=== PATIENT | male | born 1950 | race Caucasian/White ===

== ENCOUNTER 2019-06-30 11:59 | Inpatient (IN) ==
[2019-06-30] MEDS ORDERED: TORADOL IV ONE (12:23)
[2019-06-30] MEDS ORDERED: NS 1,000 ML IV ONE (12:23)
--- NOTE | 2019-06-30 12:54 | Diag Imaging Result Doc PS360 ---
EXAM: CT ABDOMEN/PELVIS W/O CONTRAST HISTORY: flank pain TECHNIQUE: CT abdomen and pelvis without contrast COMPARISON: 04/11/2019 FINDINGS: No calcified gallstones or adjacent inflammation. No focal hepatic normality identified on this noncontrasted exam. No splenomegaly. No inflammation about the pancreas. Normal adrenal glands. No right renal stone or right-sided hydronephrosis. There is a 5 x 6 x 9 mm stone in the mid left ureter with moderate hydronephrosis and perinephric inflammation. Moderate atherosclerosis. No aortic aneurysm. Normal appendix. No abscess. There are scattered colonic diverticula. No bowel obstruction. There are urinary bladder diverticula. Possible wall thickening with mild inflammation about the largest one posteriorly on the left. There are large prostatic calcifications. Prostate is not enlarged. IMPRESSION: 1.Stone in the mid left ureter with hydronephrosis and perinephric inflammation 2.Urinary bladder diverticula with possible cystitis This exam was performed using automated exposure control, adjustment of mA or kV according to patient size, and/or use of iterative reconstruction technique. Electronically signed by Piotr Sprague 06/30/2019 12:52 PM
[2019-06-30 14:39] LABS: URINE SOURCE CLEAN CATCH
[2019-06-30 14:41] LABS: BILIRUBIN URINE NEGATIVE (NEGATIVE); BLOOD URINE MODERATE (NEGATIVE); COLOR YELLOW; GLUCOSE URINE NEGATIVE (NEGATIVE); KETONE URINE NEGATIVE (NEGATIVE); LEUKOCYTES URINE SMALL (NEGATIVE); NITRITE URINE NEGATIVE (NEGATIVE); PROTEIN URINE 30 mg/dL (NEGATIVE); SP GRAVITY URINE 1.022; TURBIDITY URINE CLEAR (CLEAR); UR EPITHELIAL CELLS <10 /HPF (<10); URINE BACTERIA NEGATIVE /HPF; URINE RBC TNTC /HPF (<10); URINE WBC 20-40 /HPF (<10); UROBILINOGEN URINE NORMAL (NORMAL)
[2019-06-30 17:28] LABS: BASO# 0.03 X1000 (0.0-0.2); BASO% 0.4 % (0.0-0.8); EOS# 0.18 X1000 (0.0-0.7); EOS% 2.2 % (0.0-10.0); HEMATOCRIT 38.2 % (42.0-52.0); HEMOGLOBIN 12.8 g/dL (14.0-18.0); IMM GRAN# 0.04 X1000 (0.0-0.04); IMM GRAN% 0.5 % (0.0-0.5); LYMPH% 13.5 % (20.5-51.1); MCH 30.2 PG (27-31); MCHC 33.5 g/dL (33-37); MCV 90.1 FL (81-99); MONO# 0.78 X1000 (0.11-0.59); MONO% 9.6 % (1.7-9.3); MPV 10.3 FL (7.4-10.4); NEUT# 6.01 X1000 (1.4-6.5); NEUT% 73.8 % (42.2-75.2); PLT 226 X1000 (130-400); RBC 4.24 XMIL (4.7-6.1); RDW 12.1 % (11.5-14.5); WBC 8.14 X1000 (4.8-10.8)
[2019-06-30 17:35] LABS: PROTIME 13.3 Seconds (11.0-16.0)
[2019-06-30 17:53] LABS: ALB/GLOB RATIO 1.7; ALBUMIN 4.2 g/dL (3.5-5.0); CALCIUM 10.3 mg/dL (8.8-10.2); CREATININE 1.4 mg/dL (0.7-1.2); MAGNESIUM 1.8 mg/dL (1.5-2.7); TOTAL BILIRUBIN 0.4 mg/dL (0.20-1.00); TOTAL PROTEIN 6.7 g/dL (6.3-8.3)
[2019-06-30] MEDS ORDERED: TYLENOL PO PRN (18:10)
[2019-06-30] MEDS ORDERED: ZOFRAN IV PRN (18:10)
[2019-06-30] MEDS ORDERED: PROTONIX IV SCH (18:15)
[2019-06-30] MEDS ORDERED: SODIUM CHLORIDE 0.9% INJ SCH (18:15)
--- NOTE | 2019-06-30 18:42 | PROVIDER DOCUMENTATION ---
This chart was entered by Pat Jones Scribe, acting as scribe for Viral Chaudhary MD. HPI-Male Problem - General Chief Complaint: Flank Pain Stated Complaint: KIDNEY STONES Time Seen by Provider: 06/30/19 12:03 Source: patient Allergies/Adverse Reactions: Patient Allergies Allergy/AdvReac Type Severity Reaction Status Date / Time No Known Allergies Allergy Verified 08/15/13 14:26 Home Medications: Home Medication List Medication Instructions Recorded Confirmed Last Taken Type Esomeprazole [Nexium] 40 mg PO DAILY 08/15/13 08/15/13 08/24/13 18:00 History Fenofibrate 160 mg PO QAM 08/15/13 08/15/13 08/24/13 18:00 History Meclizine [Antivert] 12.5 mg PO QAM 08/15/13 08/15/13 08/25/13 07:00 History Nebivolol HCl [Bystolic] 2.5 mg PO QAM 08/15/13 08/15/13 08/24/13 18:00 History Telmisartan [Micardis] 20 mg PO QAM 08/15/13 08/15/13 08/25/13 07:00 History - History of Present Illness-Male Nature of Presenting Problem: 68yom presents to ED cc left flank pain that radiates to LLQ and left groin for last 2 days that is increasing. Pt reports he was seen by PCP yesterday, given Flomax BID, Cipro 500mg BID and Perrin 10mg q6 and advised to come to ED if symptoms worsened. Pt had an abdominal CT 04/11/19 that showed stone in left kidney and bladder diverticulia. Pt has hx of kidney stones. Location of Complaint: reports: left flank Radiation: reports: LLQ, groin (left) Quality of Pain: reports: sharp Severity in ED: reports: moderate Onset/Duration: reports: 2 days ago Timing: reports: still present, getting worse Context/Activities at Onset: reports: light activity Urinary Symptoms: reports: dysuria, hematuria, retention Associated Symptoms: reports: nausea, vomiting Similar Symptoms Previously?: Yes Recently seen or treated by another doctor?: Yes (seen at PCP 06/29/19) Review of Systems - Adult - REVIEW OF SYSTEMS - ADULT Constitutional: reports: see HPI. denies: chills, fever, fatique Eyes: reports: no symptoms reported Ears, Nose, Mouth & Throat: reports: no symptoms reported Cardiovascular: reports: no symptoms reported Respiratory: reports: no symptoms reported Gastrointestinal: reports: see HPI, abdominal pain (LLQ), nausea, vomiting. denies: diarrhea Genitourinary: reports: see HPI, dysuria, flank pain (left), hematuria, urinary retention Musculoskeletal: reports: no symptoms reported Integumentary: reports: no symptoms reported Neurological: reports: no symptoms reported Psychiatric: reports: no symptoms reported Endocrine: reports: no symptoms reported Hematologic/Lymphatic: reports: no symptoms reported Allergic/Immunologic: reports: no symptoms reported All Other Systems: Reviewed and Negative Past History - Adult - PAST MEDICAL HISTORY-ADULT Review of Records: reports: Nursing Assessment Review, Medications Reviewed, Social history reviewed & non-contributory. Major Childhood Illnesses: reports: denies history Cardiovascular: reports: denies history Respiratory: reports: denies history Gastrointestinal: reports: denies history Obstetrical/Gynecological: reports: denies history Genitourinary: reports: denies history Musculoskeletal: reports: denies history Neurological: reports: denies history Endocrine/Immune: reports: denies history Other Conditions: reports: denies history - IMMUNIZATION STATUS Childhood Immunizations: See Nurse Assessment Flu Vaccine: See Nurse Assessment - FAMILY HISTORY Family History: reviewed, not pertinent - SOCIAL HISTORY Smoking: denies Physical Exam-General - PHYSICAL EXAM-ADULT Initial Vital Signs Reviewed: Yes - CONSTITUTIONAL General Appearance: appears well, alert. negative: anxious, combative - EYES Eyes: PERRL/EOMI, pink conjunctivae. negative: photophobia - HEAD, EARS, NOSE, MOUTH & THROAT HENMT: normocephalic/atraumatic, moist mucous membranes. negative: angioedema - RESPIRATORY Respiratory: chest non-tender, lungs clear, normal breath sounds. negative: wheezing - CARDIOVASCULAR Cardiovascular: normal peripheral pulses, regular rate, rhythm, no edema. negative: bradycardia, tachycardia - GASTROINTESTINAL (ABDOMEN) Abdominal Exam: normal bowel sounds, soft, tenderness (LLQ). negative: rebound - MUSCULOSKELETAL Back Exam: no vertebral tenderness, CVA tenderness (left) Extremity: normal inspection, normal capillary refill. negative: deformity - SKIN Integumentary: normal color. negative: diaphoresis, jaundice - PSYCHIATRIC Psych/Mental Status: normal mood/affect, oriented x 3. negative: anxious, disheveled Progress - PLAN OF CARE/RESULTS Progress/Plan/Lab Results: Vital Signs - 8 hr 06/30/19 12:03 Temperature 98.3 F Pulse Rate 99 H Respiratory Rate 20 Blood Pressure 149/85 O2 Sat by Pulse Oximetry 98 Laboratory Results - last 24 hr 06/30/19 06/30/19 06/30/19 13:36 13:36 13:36 WBC 8.14 RBC 4.24 L Hgb 12.8 L Hct 38.2 L MCV 90.1 MCH 30.2 MCHC 33.5 RDW Std Deviation 12.1 Plt Count 226 MPV 10.3 Immature Gran % (Auto) 0.5 Neut % (Auto) 73.8 Lymph % (Auto) 13.5 L [place] % (Auto) 9.6 H Eos % (Auto) 2.2 Baso % (Auto) 0.4 Immature Gran # (Auto) 0.04 Neut # (Auto) 6.01 Lymph # (Auto) 1.10 L [place] # (Auto) 0.78 H Eos # (Auto) 0.18 Baso # (Auto) 0.03 PT 13.3 INR 1.00 Sodium 141 Potassium 4.0 Chloride 102 Carbon Dioxide 24 L Anion Gap 15 BUN 22 Creatinine 1.4 H Estimated GFR/1.73 m2 50 BUN/Creatinine Ratio 16 Glucose 92 Calculated Osmolality 284 Calcium 10.3 H Magnesium 1.8 Total Bilirubin 0.40 AST 24 ALT 18 Alkaline Phosphatase 30 L Total Protein 6.7 Albumin 4.2 Globulin 2.5 Albumin/Globulin Ratio 1.7 Urine Source Urine Color Urine Turbidity Urine pH Ur Specific [place] Urine Protein Ur Glucose (Stick) Ur Ketones (Stick) Urine Blood Urine Nitrite Urine Bilirubin Urobilinogen Dipstick Urine Leukocytes Urine WBC (Auto) Urine RBC (Auto) U Epithel Cells (Auto) Urine Bacteria (Auto) 06/30/19 14:35 WBC RBC Hgb Hct MCV MCH MCHC RDW Std Deviation Plt Count MPV Immature Gran % (Auto) Neut % (Auto) Lymph % (Auto) [place] % (Auto) Eos % (Auto) Baso % (Auto) Immature Gran # (Auto) Neut # (Auto) Lymph # (Auto) [place] # (Auto) Eos # (Auto) Baso # (Auto) PT INR Sodium Potassium Chloride Carbon Dioxide Anion Gap BUN Creatinine Estimated GFR/1.73 m2 BUN/Creatinine Ratio Glucose Calculated Osmolality Calcium Magnesium Total Bilirubin AST ALT Alkaline Phosphatase Total Protein Albumin Globulin Albumin/Globulin Ratio Urine Source CLEAN CATCH Urine Color YELLOW Urine Turbidity CLEAR Urine pH 6.0 Ur Specific [place] 1.022 Urine Protein 30 A Ur Glucose (Stick) NEGATIVE Ur Ketones (Stick) NEGATIVE Urine Blood MODERATE A Urine Nitrite NEGATIVE Urine Bilirubin NEGATIVE Urobilinogen Dipstick NORMAL Urine Leukocytes SMALL A Urine WBC (Auto) 20-40 A Urine RBC (Auto) TNTC A U Epithel Cells (Auto) <10 Urine Bacteria (Auto) NEGATIVE Orders Category Date [facility] Routine AdmDCTranf 06/30/19 18:10 Active Activity - Up with Assistance ORDERED Care 06/30/19 18:10 Active Intake and Output-Strict ORDERED Care 06/30/19 18:10 Active Nursing- MD Consult Request ROUTINE Care 06/30/19 18:13 Active Vital Signs Order Q 8-HR ASSESS Care 06/30/19 18:10 Active Z-Document. for Tele Applied ORDERED Care 06/30/19 18:13 Active Physician/Provider Consults Routine Cons 06/30/19 18:10 Ordered NPO Diet 07/01/19 00:01 Active Regular Diet Diet 06/30/19 18:[address] ABDOMEN/PELVIS W/O CONTRAST [CT] Stat Exams 06/30/19 12:07 Completed BASIC METABOLIC PANEL [CHEM] Routine Lab 07/01/19 06:00 Ordered CBC WITH DIFF [HEME] Routine Lab 07/01/19 05:00 Ordered CBC WITH DIFF [HEME] Stat Lab 06/30/19 13:36 Completed COMPREHENSIVE METABOLIC PANEL [CHEM] Stat Lab 06/30/19 13:36 Completed MAGNESIUM [CHEM] Stat Lab 06/30/19 13:36 Completed PROTIME WITH INR [COAG] Stat Lab 06/30/19 13:36 Completed URINALYSIS W/POSS RFLX CULT [URINALYSIS] Stat Lab 06/30/19 14:35 Completed URINE CULTURE [RM] Routine Lab 06/30/19 14:35 Received 0.9% Sodium Chloride Inj [Ns] 1,000 ml Med 06/30/19 18:15 Active IV 75 mls/hr 0.9% Sodium Chloride Inj [Ns] 1,000 ml Med 06/30/19 12:23 Discontinued IV 999 mls/hr Acetaminophen [Tylenol] Med 06/30/19 18:10 Active 650 mg PO Q6H PRN PRN Ketorolac [Toradol] Med 06/30/19 12:23 Discontinued 15 mg IV NOW ONE Morphine Med 06/30/19 18:13 Active 2 mg IV Q3H PRN PRN Ondansetron [Zofran] Med 06/30/19 18:10 Active 4 mg IV Q4H PRN PRN Pantoprazole [Protonix] Med 06/30/19 18:15 Active 40 mg IV Q24H Sodium Chloride 0.9% Med 06/30/19 18:15 Active 10 ml INJ DIRECTED Tamsulosin [Flomax] Med 06/30/19 21:00 Active 0.4 mg PO QHS Telemetry [OM.EQ] Routine Oth 06/30/19 18:10 Active Transfer/Admit Order [TRANSFER] Routine Transfer 06/30/19 18:15 Ordered Result Diagrams: 06/30/19 13:36 06/30/19 13:36 - CT/MRI 1 CT Study: Abdomen, Pelvis Impression: See EMR Report (IMPRESSION: 1.Stone in the mid left ureter with hydronephrosis and perinephric inflammation 2.Urinary bladder diverticula with possible cystitis This exam was performed using automated exposure control, adjustment of mA or kV according to patient size, and/or use of iterative reconstruction technique. Electronically signed by Piotr Sprague 06/30/2019 12:52 PM) - CONSULTS/PCP/HOSPITALIST Notification #1 *Consult/PCP/Hospitalist*: Dr. Reese Time Discussed: 15:14 Consult Disposition: other (advised pt has lithotripsy scheduled on so pt can be admitted and get a stent until then if they can't wait) #2 Consult: Shanita ROUTE [employer]IV[employer]IVER for Hospitalist Time Discussed: 16:41 Consult Disposition: Will see in ED, Admit Departure - Departure Date of Disposition Decision: 06/30/19 Time of Disposition Decision: 15:21 DIAGNOSIS: Ureterolithiasis, Hydronephrosis Disposition: ADMITTED INPATIENT 09 Certified Medical Emergency: Emergent Condition: Fair Additional Instructions: ED Follow Up Instructions: You have been treated by a care provider in the Emergency Department. These instructions are being provided to you so you can have an understanding of how to care for yourself upon discharge. Upon discharge from the Emergency Department, you are responsible for making arrangements for follow-up care by a physician of your choice. Take all prescribed medications as directed. Return to the Emergency Department immediately for any new or worsening symptoms. You may call the Physician Referral phone number at [phone] to obtain a list of Physicians who are taking new patients. Referrals and Follow-Ups: Ovidio Brown, [Primary Care Provider] - - Critical Care Note This patient required my direct & personal management of CC.: No Attestation - Physician/ JOCELYN Attestation Patient care was provided by Advanced Practice Provider:: No The physician spent face to face time with patient:: Yes Advanced Practice Provider documentation review:: Supervising physician onsite and consulted in the evaluation and care of this patient. The physician did have a face to face encounter with the patient. This chart was documented by the indicated scribe, (Pat Jones Scribe) and accurately reflects the services I performed and decisions made by me, Viral Chaudhary MD, as attested by the provider's signature.
--- NOTE | 2019-06-30 18:51 | HISTORY AND PHYSICAL ---
CHIEF COMPLAINT: Left flank pain, nausea, vomiting. HISTORY OF PRESENT ILLNESS: This is a 68-year-old gentleman with a prior history of kidney stones, hypertension, bladder diverticulum, and BPH. He presented to the emergency room complaining of left flank pain with nausea and vomiting. It began yesterday as a sudden onset of stabbing pain. He states this feels like prior kidney stones. He rates the pain at a 7 to 8 at its worst and a 2 to 3 at its best. He denies any exacerbating or alleviating factors. CT scan of the abdomen and pelvis revealed a 5 x 6 x 9 mm stone in the mid left ureter with moderate hydronephrosis and perinephric inflammation. PAST MEDICAL HISTORY: 1. Hypertension. 2. Nephrolithiasis. 3. Bladder diverticulum. 4. History of colon cancer. 5. BPH with bladder outlet obstruction. PAST SURGICAL HISTORY: Denies. SOCIAL HISTORY: He denies alcohol, tobacco, or illicit drug use. ALLERGIES: No known drug allergies. HOME MEDICATIONS: A list will be obtained by the nursing staff and once verified, will review restart as appropriate. FAMILY HISTORY: Positive for hypertension and diabetes. REVIEW OF SYSTEMS: Discussed with patient with pertinent positives stated in the HPI. He denied any syncope, dizziness, chest pain, palpitations, any shortness of breath, cough, fever, chills, any diarrhea, constipation, black or bloody vomitus or stools, any gross hematuria, dysuria, frequency, or urgency. PHYSICAL EXAMINATION: GENERAL: This is a 68-year-old gentleman who is lying on the stretcher in the emergency room in no distress. VITAL SIGNS: Blood pressure is 140/85 with a heart rate of 90. Respirations are 20, temperature is 98.3 with room air saturations 98%. HEENT: Head is normocephalic, atraumatic. Pupils equal and round and react to light. Sclerae are anicteric. Mucous membranes are moist. NECK: Supple with trachea midline. CARDIOVASCULAR: Regular rate and rhythm. S1, S2 appreciated. His calves are nontender. Peripheral pulses are palpable x4 extremities. PULMONARY: Breath sounds are clear with no increased work of breathing noted. Chest rises and falls symmetrically with respiration. Chest wall is nontender to palpation. GASTROINTESTINAL: Abdomen is soft, nontender, nondistended. Bowel sounds in all 4 quadrants. GENITOURINARY: He has positive left CVA tenderness. NEUROLOGIC: He is alert and oriented x3. SKIN: Warm and dry. LABS: WBCs 8.1 with hemoglobin 12.8, hematocrit 38.2, platelets 226,000. INR is 1. Sodium 141, potassium 4, BUN 22, creatinine 1.4 Urinalysis is positive for 20 to 40 microscopic white blood cells, lpl-[id number]-lb-count microscopic red blood cells. Urine culture is pending. CT of the abdomen and pelvis revealed a 5 x 6 x 9 mm stone in the mid left ureter with moderate hydronephrosis and perinephric inflammation with urinary bladder diverticula and possible cystitis. ASSESSMENT AND PLAN: 1. A 5 x 6 x 9 obstructing mid left ureter stone with moderate hydronephrosis. The ER physician spoke to Dr. Reese, who will see the patient in the morning. Morphine for pain. 2. He will be n.p.o. for possible surgery in the morning. 3. Acute kidney injury. This patient has no history of chronic kidney disease. This is most likely postobstructive. IV hydration. Hold any renal toxic medications. recheck labs in the morning. 4. Left flank pain. Morphine for pain. 5. History of hypertension. review his home medications and restart as appropriate. 6. For deep venous thrombosis prophylaxis,sequential compression devices, as he had does have surgery pending in the morning. For GI prophylaxis, Protonix. 7. Further treatments pending hospital course. Plan was discussed with Dr. Moeller. Dictated by CHYNA Kirkpatrick for Jose De Jesus Navas MD Addendum: Patient seen and examined by myself. Agree with CHYNA note. It reflects my assessment and plan. Patient is being admitted to hospital for obstructive uropathy. Will consult Urology and follow recommendations. Will provide IV fluids and pain medications. Will monitor patient closely. cc: CHYNA Kirkpatrick MD [facility] CENTERMeghan
[2019-06-30] MEDS: NS 1,000 ML IV SCH ×2 (20:07→20:51)
[2019-06-30] MEDS ORDERED: FLOMAX PO SCH (21:00)
[2019-06-30] MEDS: MORPHINE IV PRN (22:40)
[2019-07-01] MEDS: MORPHINE IV PRN (03:36)
[2019-07-01 06:34] LABS: BASO# 0.02 X1000 (0.0-0.2); BASO% 0.3 % (0.0-0.8); EOS# 0.34 X1000 (0.0-0.7); EOS% 4.4 % (0.0-10.0); HEMATOCRIT 36.5 % (42.0-52.0); HEMOGLOBIN 12.2 g/dL (14.0-18.0); IMM GRAN# 0.03 X1000 (0.0-0.04); IMM GRAN% 0.4 % (0.0-0.5); LYMPH# 1.53 X1000 (1.2-3.4); LYMPH% 19.7 % (20.5-51.1); MCHC 33.4 g/dL (33-37); MCV 89.9 FL (81-99); MONO# 0.75 X1000 (0.11-0.59); MONO% 9.7 % (1.7-9.3); NEUT# 5.08 X1000 (1.4-6.5); NEUT% 65.5 % (42.2-75.2); PLT 208 X1000 (130-400); RBC 4.06 XMIL (4.7-6.1); WBC 7.75 X1000 (4.8-10.8)
[2019-07-01 07:04] LABS: CALCIUM 9.5 mg/dL (8.8-10.2); CREATININE 1.4 mg/dL (0.7-1.2); POTASSIUM 4.7 mmol/L (3.5-5.1)
[2019-07-01] MEDS: NS 1,000 ML IV SCH (09:34)
--- NOTE | 2019-07-01 10:08 | CONSULTATION ---
DATE OF CONSULTATION: 07/01/2019 PREOPERATIVE DIAGNOSIS: Left mid ureteral stone. CHIEF COMPLAINT: Left flank pain with some nausea and vomiting. HISTORY OF PRESENT ILLNESS: This 68-year-old male has a history of renal lithiasis. He underwent cysto stone extraction in 2013. Recently he had episode of hematuria, and a CT stone search revealed a 6 mm stone in the left kidney. The patient states that several days ago, he started having severe left flank pain. It increased. He started having nausea and some vomiting, and was seen in the emergency room where a repeat CT stone search again revealed a 6 mm stone in the left mid ureter. There were no other abnormal calcifications noted. The patient states he recently had pain medication and is not having any pain. PAST MEDICAL HISTORY: Hypertension, renal lithiasis, history of colon cancer, enlarged prostate with some obstructive voiding. CURRENT MEDICATIONS: Documented on the chart. PAST SURGICAL HISTORY: Colon cancer surgery, right foot surgery, back surgery, right shoulder surgery, and cystoscopic exam with right ureteroscopy and stone extraction. SOCIAL HISTORY: No tobacco or alcohol use. ALLERGIES: No known drug allergies. REVIEW OF SYSTEMS: Usually in good health. He denies any problems with strokes, seizures, diabetes, pulmonary or bowel problems. PHYSICAL EXAMINATION: General: A normally developed, mildly obese, age apparent white male, oriented in all ways and cooperative. HEENT: Normal for age. Lungs: Clear. Cardiovascular: Regular rate and rhythm. Abdomen: Obese, soft, nontender. No hepatosplenomegaly or masses. Normal bowel sounds. : Normal male. Both testes down. Rectal: Exam deferred until surgery. Extremities: No clubbing, cyanosis, or edema. Neurologic: No focal deficits. LABORATORY EVALUATION: He has a white count of 7.75, hemoglobin 12.2, hematocrit 36.5 and platelets are 208,000. Serum electrolytes are normal. BUN 22, creatinine 1.4. CT stone search again reveals an approximate 6 mm stone in the left mid ureter with moderate hydronephrosis. No other abnormal calcifications are seen within the kidney. IMPRESSION: Left flank pain with a left mid ureteral stone with moderate obstruction. PLAN: Cystoscopic exam, left ureteroscopy, laser lithotripsy of stone with basket extraction of fragments. If possible, place left double-J stent. The planned procedure, benefits versus risks, and possible complications including, but not limited to bleeding, infection, not being able to remove the stone, not being able to place a double-J stent, need for further surgery was discussed. He seems to understand and desires to proceed. cc: Kwasi Reese MD
--- NOTE | 2019-07-01 12:50 | PROGRESS NOTE ---
DATE: 07/01/2019 SUBJECTIVE: Patient reports feeling fine. Denies any fever or chills. OBJECTIVE: Vital Signs: Temperature 98.5 degrees, heart rate 65, respiratory 16, blood pressure 155/69, O2 saturation 95% on room air. General Examination: This is a 68-year-old male, lying in bed in no acute distress. Cardiovascular exam: S1, S2 heard. No murmurs, gallops, or rubs. Regular rate and rhythm. Respiratory exam: Clear bilaterally to auscultation. No work of breathing or using accessory muscles. Abdomen: Soft, nontender to palpation. Bowel sounds present. No organomegaly. Extremities: No clubbing, cyanosis, or edema. Peripheral pulses present in both legs. Neurological exam: Patient alert and oriented x3. Moves 4 extremities. LABORATORY DATA: Reviewed. ASSESSMENT AND PLAN: 1. Left ureteral stone with moderate hydronephrosis. Urology has been consulted. We will plan to do cystoscopy and removal of the stone. We will continue to monitor. 2. Acute kidney injury. Creatinine continues to be the same. We will continue with intravenous fluids. 3. Hypertension. Blood pressure is under control. We will continue with the same management. 4. Disposition: Following the lead from Urology. cc: Jose De Jesus Navas MD
[2019-07-01] MEDS ORDERED: FENTANYL ONE (13:22)
[2019-07-01] MEDS ORDERED: DIPRIVAN 1% ONE (13:23)
[2019-07-01] MEDS ORDERED: XYLOCAINE-MPF 2% ONE (13:42)
[2019-07-01] MEDS ORDERED: KEFZOL 2 GM/D5W 2 GM/50 ML IVPB ONE (14:07)
[2019-07-01] MEDS ORDERED: DITROPAN ONE (15:23)
[2019-07-01] MEDS ORDERED: LR 500 ML ONE (15:23)
[2019-07-01] MEDS ORDERED: NORCO-7.5 ONE (15:23)
--- NOTE | 2019-07-01 15:46 | OPERATIVE NOTE ---
PROCEDURE DATE: 07/01/2019 SURGEON: Dr. Kwasi Reese. PREOPERATIVE DIAGNOSIS: Left mid ureteral stone. POSTOPERATIVE DIAGNOSIS: Duplicated left collecting system with the stone in the left lower pole ureter, prison down between the kidney and bladder. PROCEDURE PERFORMED: Cystoscopic exam: Placing a wire in the left upper pole ureter and then doing left ureteroscopy in the left lower pole ureter and finding the stone. Laser lithotripsy, basket extraction of fragments, and placement of left double-J stent. ANESTHESIA: General via laryngeal mask. FINDINGS: Cystoscopic exam: Urethra-greater than 21 Welsh, without stricture. Prostate- coapting lateral lobes, elevated bladder neck, length approximately 4 cm. Bladder-[address] on the left, 1 on the right. Mild trabeculations. A large diverticulum on the right lower posterolateral wall and left mid posterolateral wall. No papillary lesions noted. INDICATION FOR PROCEDURE: This 68-year-old male with history of renal lithiasis developed severe left flank pain. Evaluation with a CT stone search revealed a 7 mm stone in the left mid ureter. Rectal exam revealed a prostate of about 40 g, smooth and symmetric. DESCRIPTION OF PROCEDURE: After informed consent was obtained from the patient and him receiving IV antibiotics, he was taken to the main OR cystoscopy room, placed in the supine position. General anesthesia via laryngeal mask was achieved. He was then placed in the low lithotomy position, and prepped and draped in the usual sterile fashion for cystoscopic exam. A 21-Welsh cystoscope was passed to the patient's urethra, prostate, and into the bladder. A 0.035 ZIPwire was passed through the cystoscope, engaged the left ureteral orifice and advanced up into the kidney. The cystoscope was removed, leaving the ZIPwire in place to act as a safety wire. A 7- Welsh Storz semi-rigid ureteroscope was advanced through the patient's urethra, prostate, and in the bladder. A 0.035 Sensor wire was passed through the ureteroscope and up into the ureter. The ureteroscope was advanced over the Sensor wire, and was able to be passed all the way up to the UPJ area, and no stone was visualized. The ureteroscope was removed. The cystoscope was replaced and a second ureteral orifice was visualized. It was higher than the initial visualized orifice, meaning that it was the lower pole ureter. A 0.035 Sensor wire was passed through the ureteroscope and into this lower pole ureter, and the ureteroscope was able to be advanced up to the stone. The Sensor wire was advanced up into the kidney. The ureteroscope was removed leaving the Sensor wire in place to act as a safety wire. The ureteroscope was returned to the ureter, and a 365 micron laser fiber was placed. The laser was set at 8 hertz and 8 juarez, and the stone was fragmented. A total of 97 joules was used. A 4 wire Nitinol basket was placed and several passes were made to remove stone fragments. These were sent to Pathology for analysis. The ureteroscope was then advanced up to the UPJ area, and no further stones or fragments were visualized. The ureteroscope was removed. A 6-Welsh, 24 cm double-J stent was passed over the Sensor wire and up into the kidney. The renal end which appeared to be in the lower pole area of the kidney was visualized with fluoroscopic exam. The bladder end directly visualized. Bladder was drained. Cystoscope was removed. Stent removal string securely taped to the penile shaft. Rectal exam performed. He tolerated the procedure well. Estimated blood loss less than 1 mL. He was taken to the recovery room in good condition. cc: Kwasi Reese MD
[2019-07-01 16:39] VITALS: BP 140/70
[2019-07-01] MEDS ORDERED: NORCO-7.5 PO PRN (19:00)
[2019-07-01] MEDS ORDERED: DITROPAN PO PRN (21:00)
--- NOTE | 2019-07-02 12:24 | DISCHARGE SUMMARY ---
ADMISSION DATE: 06/30/2019 DISCHARGE DATE: 07/01/2019 DISCHARGE DIAGNOSES: 1. Left hydronephrosis and ureteral nephrosis. 2. Acute kidney injury. 3. Hypertension. CONSULTATIONS: Dr. Reese from urology. PROCEDURES: 1. Abdomen and pelvis CT showed the stone in the mid left ureter with hydronephrosis and perinephric inflammation and urinary bladder diverticula with possible cystitis. 2. 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 HOSPITAL COURSE: This is a 68-year-old male with a prior history of kidney stones, hypertension, bladder diverticula and BPH, who came to the emergency department complaining of abdominal pain. A CT of the abdomen and pelvis showed results as above. Patient was taken to the OR by Dr. Reese for a cystoscopy. Then he was cleared by Urology and then this patient is going to be seen in the office by Dr. Reese in a week. The patient is being discharged in stable condition. DISCHARGE PHYSICAL EXAMINATION: Vital Signs: Temperature 98.5 degrees, heart rate 68, respiratory rate 18, blood pressure 155/69, O2 saturation 100% on room air. General Examination: This is a 68-year-old male, lying in bed, in no acute distress. Cardiovascular: S1 and S2 heard. No murmurs, gallops, or rubs. Regular rate and rhythm. Respiratory: Clear bilaterally to auscultation. No work of breathing or using accessory muscles. Abdomen: Soft, nontender to palpation. Bowel sounds present. No organomegaly. Extremities: No clubbing, cyanosis, or edema. Peripheral pulses present in both legs. Neurological: The patient alert and oriented x3. Moves 4 extremities. DISCHARGE DISPOSITION: Home to self-care. FOLLOWUP: With Dr. Reese in the office in 1 week. cc: Jose De Jesus Navas MD
--- NOTE | 2019-07-04 08:54 | Diag Imaging Result Doc PS360 ---
EXAM: FLUOROSCOPY CYSTO INDICATION: LEFT STONE EXTRACTION, STENT PLACEMENT TECHNIQUE: COMPARISON: 08/25/2013 FINDINGS: 21 spot fluoroscopic images were provided, which were performed during left ureteral stone extraction and left ureteral stent placement by Dr. Kwasi Reese. On the final image, the newly placed left ureteral stent is identified in the expected position. IMPRESSION: As above. Please correlate with live fluoroscopic imaging. Electronically signed by Edd Gardiner 07/04/2019 8:52 AM
== END 2019-07-01 18:43 | disposition home or self-care (01) | DRG 661 ==
LOC: ED 11:59 → 4N 20:16
PROVIDERS: ATTEND Internal Medicine